=== PATIENT | female | born 1965 | race Caucasian/White ===

== ENCOUNTER 2016-10-29 19:41 | Emergency (ER) | payer BC ==
[~2016-10-29] VITALS: Ht 167.6 cm; Wt 55.8 kg
[~2016-10-29 19:41] MED LIST: NORT50CA3 PO; PRM25T PO; TRM50T PO
[2016-10-29] MEDS ORDERED: RT-ALBUINH IH (21:39)
[2016-10-29] MEDS ORDERED: SULF1TAB35 PO (22:06)
[2016-10-29] MEDS ORDERED: RX-TRIMETH/SULFA. 160-800 MG (BACTRIM DS) TAB PPK#2 PO STA (22:07)
--- NOTE | 2016-10-29 22:07 | ED Integumentary General ---
General Chief Complaint: Skin/Wound Problems Stated Complaint: SORE SPOT ON BUTTOCKS Nursing Triage Note: PT HERE WITH C/O RASH THAT IS SPREADING ON HER UNDERWARE LINE. Source: patient Exam Limitations: no limitations History of Present Illness Time seen by provider: 21:56 Initial Comments 51-year-old female patient presents to the emergency department to sores on the left buttock. Reports pain. Increasing in size over the last couple of days. Location Injury Occurred: denies known injury Timing/Duration: getting worse, other (2 days) Possible Cause: no cause identified Modifying Factors: worse with other (worse with palpation) Allergies and Home Medications Allergies Coded Allergies: No Known Drug Allergies (Unverified , 12/29/11) Home Medications Albuterol Sulfate 8.5 Gm Hfa.aer.ad 1-2 PUFF IH (Reported) Nortriptyline Hcl 50 Mg Capsule 50 MG PO (Reported) Sulfamethoxazole/Trimethoprim 1 Each Tablet #14 1 EACH PO BID Prescribed by: KALPESH VALDIVIA on 10/29/162205 Tramadol Hcl 50 Mg Tab 50 MG PO BID (Reported) Constitutional: No chills, No fever, No malaise Gastrointestinal: No abdominal pain, No constipation, No diarrhea, No loss of appetite, No nausea, No vomiting Genitourinary: No decreased output, No discharge, No dysuria, No frequency, No hematuria, No pain Musculoskeletal: no symptoms reported Skin: see HPI rash All Other Systems Reviewed Negative Unless Noted: Yes (Negative excepted noted.) Past Oumnntz-Snmpdo-Arywkq Hx Patient Social History Alcohol Use: Denies Use Recreational Drug Use: No Smoking Status: Never a Smoker 2nd Hand Smoke Exposure: No Recent Foreign Travel: No Contact w/Someone Who Travel: No Recent Infectious Disease Expo: No Recent Hopitalizations: No Immunizations Up To Date Tetanus Booster (TDap): Unknown Date of Influenza Vaccine: Jun 26, 2011 Seasonal Allergies Seasonal Allergies: No Surgeries HX Surgeries: No Respiratory Hx Respiratory Disorders: Yes Respiratory Disorders: Asthma Cardiovascular Hx Cardiac Disorders: No Neurological Hx Neurological Disorders: No Reproductive System : No Hx Reproductive Disorders: No Genitourinary Hx Genitourinary Disorders: No Gastrointestinal Hx Gastrointestinal Disorders: No Musculoskeletal Hx Musculoskeletal Disorders: No Endocrine Hx Endocrine Disorders: No HEENT HX ENT Disorders: No Cancer Hx Cancer: No Psychosocial Hx Psychiatric Problems: No Integumentary HX Skin/Integumentary Disorder: No Reviewed Nursing Assessment Reviewed/Agree w Nursing PMH: Yes Family Medical History Significant Family History: No Pertinent Family Hx Physical Exam Vital Signs Vital Sign - Last 12Hours 10/29/16 21:32 Temp 98.6 Pulse 116 Resp 20 B/P 123/67 Pulse Ox 96 O2 Delivery Room Air Capillary Refill : Less Than 3 Seconds General Appearance: WD/WN no apparent distress Neurologic/Psychiatric: alert normal mood/affect oriented x 3 Skin: rash (2 lesions on the left inferior buttock measuring 1 cm each with erythema, tenderness. no warmth or drainage noted. ) Skin Problem Location: other (left inferior buttock.) Skin Problem Character: erythema, tenderness, other (2 lesions on the left inferior buttock measuring 1 cm each with erythema, tenderness. no warmth or drainage noted. ) Progress/Results/Core Measures Results/Orders My Orders Orders-KALPESH VALDIVIA Rx-Trimeth/Sulfameth Ds Tab (Rx-Bactrim/ (10/29/16 22:07) Vital Signs/I&O Vital Sign - Last 12Hours 10/29/16 10/29/16 21:32 22:12 Temp 98.6 98.6 Pulse 116 116 Resp 20 20 B/P 123/67 Pulse Ox 96 96 O2 Delivery Room Air Blood Pressure Mean: 85 Departure Communication Progress Notes Patient seen and evaluated. Discharge to home with oral Bactrim. Impression Impression: Primary Impression: Folliculitis Disposition: 01 HOME, SELF-CARE Condition: Improved Departure-Patient Inst. Decision time for Depature: 22:06 Referrals: NO,LOCAL PHYSICIAN (PCP/Family) Primary Care Physician Patient Instructions: Folliculitis (DC) Add. Discharge Instructions: All discharge instructions reviewed with patient and/or family. Voiced understanding. Medications as instructed. Continue usual home medications. Tylenol extra strength ypib-hop-aflnxsz as directed for pain. Ibuprofen 800 mg by mouth every 8 hours as needed for pain. Shower with antibacterial soap. Cover with a bandage if needed. Return to the emergency department for worsened pain, swelling, redness, drainage, fever, or any other concerns. Follow-up with your family practitioner for recheck as an outpatient if needed. Scripts Sulfamethoxazole/Trimethoprim (Bactrim Ds Tablet)1 Each Tablet1 Each PO BID #14 TAB Ref 0 Prov:KALPESH VALDIVIA 10/29/16 Work/School Note: Local Medical Staff Listing KALPESH VALDIVIA Oct 29, 2016 22:07
[2016-10-29 22:12] VITALS: BP 123/67
== END 2016-10-29 22:10 | disposition home or self-care (01) ==
LOC: EDUNIT# 19:41 → ER 19:43
DX: L73.9 Follicular disorder, unspecified (principal)
CPT/HCPCS: 99283

== ENCOUNTER 2018-11-10 05:22 | Emergency (ER) | payer SELFPAY ==
[~2018-11-10] VITALS: Ht 167.6 cm; Wt 54.4 kg
--- NOTE | 2018-11-10 06:05 | ED Cough/URI ---
General Chief Complaint: Cough/Cold/Flu Symptoms Stated Complaint: FEVER,COUGH Nursing Triage Note: c/o fever, cough x4 days. started on cefdinir 11/07/18 by pcp without improvement. Sepsis Screen: Possible Sepsis Risk Source: patient History of Present Illness Date Seen by Provider: Nov 10, 2018 Time Seen by Provider: 05:45 Initial Comments PT ARRIVES VIA POV FROM HOME C/O PRODUCTIVE COUGH WITH GREEN SPUTUM SINCE Sunday11/05/18 MILD NASAL DRAINAGE HAS HAD FEVER UP TO 101 STARTED WITH SORE THROAT--THAT IS GETTING BETTER C/O SHORTNESS OF BREATH--PT STATES SHE HAS COPD AND HAS INHALER AT HOME,BUT HAS NOT BEEN USING IT STATES DR. CONTRERAS'S ( DEVELOPING MACHINE TENDER) OFFICE CALLED IN RX FOR CEFDINIR ON Sunday11/07/18 STATES SHE WAS NOT SEEN BY ANYONE STATES WHILE SHE WAS IN LINE AT PHARMACY, SHE FELT LIKE SHE WAS GOING TO PASS OUT--STATES SHE WENT TO THE FLOOR, LANDING ON HER BUTTOCKS, AND WAS CATCHING HERSELF BY HOLDING ONTO HER CART WITH HER RIGHT ARM-STATES IT PULLED EVERYTHING ON HER RIGHT SIDE, BUT NO DIRECT TRAUMA TO HER RIGHT SIDE STATES HER RIGHT BACK HURTS WHEN SHE TAKES A DEEP BREATH OR COUGHS C/O LOWER BACK PAIN, BUT HAS CHRONIC NECK AND BACK PAIN AND FIBROMYALGIA AND GETS PAIN SHOTS EVERY 2 MONTHS FOR THESE PROBLEMS NO PARESTHESIAS OR MOTOR DEFICITS NO PROBLEMS WITH BOWEL OR BLADDER FUNCTION HAS NOT TAKEN ANYTHING FOR PAIN STATES SHE IS NOT BETTER, AND HAS BEEN TAKING TYLENOL FOR HER FEVER AND ROBITUSSIN IN ADDITION TO CEFDINIR. PCP: NONE DEVELOPING MACHINE TENDER: DR. CONTRERAS DOES NOT SEE ANY OTHER SPECIALISTS, OR PHYSICIANS Allergies and Home Medications Allergies Coded Allergies: No Known Drug Allergies (Unverified , 12/29/11) Home Medications Azithromycin 500 Mg Tablet, 500 MG PO DAILY FOR INFECTION Prescribed by: LINDA LYMAN on 11/10/18612 Benzonatate 100 Mg Capsule, 1-2 TAB PO TID Prescribed by: LINDA LYMAN on 11/10/18612 D-Methorphan Hb/Prometh HCl 118 Ml Syrup, 1-2 TSP PO Q4H Prescribed by: LINDA LYMAN on 11/10/18612 Methylprednisolone 4 Mg Tab.ds.pk, 4 MG PO UD Prescribed by: LINDA LYMAN on 11/10/18612 Sulfamethoxazole/Trimethoprim 1 Each Tablet, 1 EACH PO BID Prescribed by: KALPESH VALDIVIA on 10/29/166 Tramadol Hcl 50 Mg Tab, 50 MG PO BID, (Reported) Patient Home Medication List Home Medication List Reviewed: Yes Review of Systems Review of Systems Constitutional: see HPI, dizziness, fever EENTM: see HPI, nose congestion, throat pain Respiratory: see HPI, cough, short of breath; No wheezing Cardiovascular: no symptoms reported; No chest pain, No palpitations Gastrointestinal: no symptoms reported Genitourinary: no symptoms reported : No (MENOPAUSAL) Musculoskeletal: see HPI, back pain Skin: no symptoms reported Psychiatric/Neurological: No Symptoms Reported Hematologic/Lymphatic: No Symptoms Reported Immunological/Allergic: no symptoms reported Past Vocvxkj-Fryvfh-Tbqhkt Hx Patient Social History Alcohol Use: Occasionally Uses Recreational Drug Use: No Type Used: Smokeless Tobacco 2nd Hand Smoke Exposure: No Recent Foreign Travel: No Contact w/Someone Who Travel: No Recent Infectious Disease Expo: No Recent Hopitalizations: No Immunizations Up To Date Tetanus Booster (TDap): Unknown Date of Influenza Vaccine: Jun 26, 2011 Seasonal Allergies Seasonal Allergies: No Past Medical History Surgeries: Yes ( X 1) Section Respiratory: Yes Asthma, COPD Cardiac: Yes (TACHYCARDIA) Hypertension Neurological: No : No Reproductive Disorders: No HR PAYROLL COORDINATOR History: Menopausal Genitourinary: No Gastrointestinal: No Musculoskeletal: Yes (CHRONIC NECK AND BACK PAIN ) Fibromyalgia, Chronic Back Pain Endocrine: No HEENT: No Cancer: No Psychosocial: No Integumentary: No Blood Disorders: No Family Medical History No Pertinent Family Hx Physical Exam Vital Signs - First Documented 11/10/18 05:38 Temp 98.6 Pulse 109 Resp 18 B/P (MAP) 143/80 (101) Pulse Ox 97 O2 Delivery Room Air Capillary Refill : Less Than 3 Seconds Height: 5'6.00" Weight: 120lbs. oz. 54.872761us; BMI Method:Stated General Appearance: no apparent distress, thin, other (WEARING A WIG, MOVES SLOWLY. OCCASIONAL HARSH, DRY COUGH NOTED. DOES NOT APPEAR IN ANY DISTRESS) HEENT: PERRL/EOMI, pharynx normal, other (TM'S WITH EFFUSIONS BILATERALLY. 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 NO EXTERNAL EVIDENCE OF TRAUMA. Progress/Results/Core Measures Suspected Sepsis Recent Fever Within 48 Hours: Yes Infection Criteria Present: Documented Infection New/Unexplained Altered Menta: No Sepsis Screen: Possible Sepsis Risk SIRS Temperature:98.6 Pulse: 109 Respiratory Rate: 18 Blood Pressure 143 /80 Mean: 101 Results/Orders Micro Results Microbiology 11/10/18 Influenza Types A,B Antigen ([facility]) - Final, Complete My Orders Orders - LINDA LYMAN DO Influenza A And B Antigens (11/10/18 05:41) Lumbar Spine - 2-3 Views (11/10/18 06:13) Vital Signs/I&O 11/10/18 11/10/18 05:38 05:38 Temp 98.6 Pulse 109 Resp 18 B/P (MAP) 143/80 (101) Pulse Ox 97 O2 Delivery Room Air Room Air Capillary Refill : Less Than 3 Seconds Blood Pressure Mean: 101 Progress Note : Progress Note 0615--NOW WOULD LIKE XRAYS OF HER BACK WELL, WHILE SHE IS HERE Diagnostic Imaging Comments XRAYS LUMBAR SPINE--NO ACUTE PROCESS, PENDING RADIOLOGIST REVIEW Reviewed: Reviewed by Me Departure Impression Primary Impression: Bronchitis Additional Impressions: Bilateral serous otitis media COPD (chronic obstructive pulmonary disease) Low back strain Acute exacerbation of chronic low back pain Disposition: 01 HOME, SELF-CARE Condition: Stable Departure-Patient Inst. Referrals: NO,LOCAL PHYSICIAN (PCP/Family) Primary Care Physician Patient Instructions: Acute Bronchitis, Adult (DC), COPD Including Emphysema ( DC), Lumbar Muscle Strain (DC), MANAGING YOUR CHRONIC PAIN, Serous Otitis Media (DC) Add. Discharge Instructions: USE YOUR ALBUTEROL INHALER WITH SPACER EVERY 4 HOURS NEEDED TYLENOL AND MOTRIN NEEDED FOR PAIN OR FEVER LOTS OF CLEAR LIQUIDS CONTINUE CEFDINIR PRESCRIBED ALTERNATE ICE AND HEAT TO BACK AT 20 MINUTE INTERVALS FOLLOW UP WITH DR. CONTRERAS IN 2-3 DAYS IF NO BETTER All discharge instructions reviewed with patient and/or family. Voiced understanding. Scripts D-Methorphan Hb/Prometh HCl (Promethazine-Dm Syrup) 118 Ml Syrup 1-2 TSP PO Q4H for Cough, #120 ML Prov: LINDA LYMAN DO 11/10/18 Methylprednisolone (Medrol) 4 Mg Tab.ds.pk 4 MG PO UD, #1 PKG Prov: LINDA LYMAN DO 11/10/18 Benzonatate (TESSALON PERLES) 100 Mg Capsule 1-2 TAB PO TID for Cough, #30 CAP Prov: LINDA LYMAN DO 11/10/18 Azithromycin (Zithromax) 500 Mg Tablet 500 MG PO DAILY, #5 TAB FOR INFECTION Prov: LINDA LYMAN DO 11/10/18 LINDA LYMAN DO Nov 10, 2018 06:05
[2018-11-10 06:54] VITALS: BP 143/80
--- NOTE | 2018-11-10 07:15 | Diagnostic Imaging Report ---
INDICATION: Cough x4 days making low back hurt. TECHNIQUE: AP, Lateral and Spot imaging of the lumbar spine CORRELATION STUDY: None FINDINGS: Lumbar spinal alignment anatomic. Vertebral body heights maintained. There is moderate marked disc space narrowing L5-S1 level with endplate sclerosis. Hypertrophic facet arthropathy at the L5-S1 level. Remaining disc spaces preserved. Vascular calcification of abdominal aorta. IMPRESSION: Moderate disc space narrowing L5-S1 level. Dictated by: Dictated on workstation # [id number]
== END 2018-11-10 06:54 | disposition home or self-care (01) ==
LOC: EDUNIT# 05:22 → ER 05:25
DX: S39.012A Strain of muscle, fascia and tendon of lower back, initial encounter (principal); G89.29 Other chronic pain; J44.9 Chronic obstructive pulmonary disease, unspecified; H65.93 Unspecified nonsuppurative otitis media, bilateral; I10 Essential (primary) hypertension; Z79.52 Long term (current) use of systemic steroids; Z98.890 Other specified postprocedural states; X50.0XXA Overexertion from strenuous movement or load, initial encounter
CPT/HCPCS: 72100; 87804